=== PATIENT | female | born 1995 | race Two or more races ===

== ENCOUNTER 2024-02-10 15:05 | Observation (INO) | payer OTHER ==
[~2024-02-10] VITALS: Ht 160 cm; Wt 55.8 kg
[2024-02-10] MEDS ORDERED: LACTATED RINGER'S 1,000 ML IV ONE (15:30)
== END 2024-02-10 16:25 | disposition home or self-care (01) ==
LOC: LDRP 15:05
PROVIDERS: ADMIT Obstetrics & Gynecology; ATTEND Obstetrics & Gynecology
DX: O99.283 Endocrine, nutritional and metabolic diseases complicating pregnancy, third trimester (principal); E86.0 Dehydration; O26.893 Other specified pregnancy related conditions, third trimester; R55 Syncope and collapse; R42 Dizziness and giddiness; R53.1 Weakness; Z3A.28 28 weeks gestation of pregnancy
CPT/HCPCS: 59025; 81002; 82948; 82962; 94760; G0378